=== PATIENT | female | born 1985 | race Caucasian/White ===

== ENCOUNTER 2025-01-20 23:09 | Emergency (ER) | payer OTHER, SELFPAY ==
[2025-01-20 23:10] VITALS: BP 140/93; PULSE 80; RESP 16; TEMP 36.8; O2SAT 99; BMI 20.5
--- NOTE | 2025-01-20 23:30 | RAD_ITS ---
PROCEDURE: RIGHT WRIST MIN 3 VIEWS 01/20/2025 REASON FOR EXAM: PAIN TECHNIQUE: RIGHT WRIST MIN 3 VIEWS COMPARISON: None. FINDINGS: No acute fracture or dislocation. Alignment is anatomic. Preserved joint spaces. No aggressive osseous lesion. No appreciable soft tissue swelling or radiopaque foreign body. RAD/Wrist min 3 Views IMPRESSION: No acute fracture or dislocation. Reading Location: [id number]
--- NOTE | 2025-01-21 00:14 | EDS_ITS ---
HPI History of Present Illness Chief Complaint: Upper Extremity Injury Informant: patient and spouse/S.O. Narrative Narrative: Patient is a 39-year-old female with no reported significant past medical history. She states just 1 to 2 hours ago she tripped and fell catching herself on outstretched right arm/hand. She states her hand was bent backwards when she fell. She denies striking her head or any loss of consciousness. She states after the fall she noticed swelling and pain to the right wrist region. She states that she is concerned potential fracture based on the injury and therefore comes in for evaluation. PFSH PFSH Medical History no medical history no medical history Allergy/AdvReac Type Severity Reaction Status Date / Time No Known Allergies Allergy Verified 01/20/25 23:12 Family History no significant family his Surgical History no surgical history Social History Smoking Status: Never smoker ROS ROS ED Constitutional Constitutional ED: Denies chills or fever(s) Eyes Eyes: Denies change in vision ENT ENT ED: Denies sore throat Cardiovascular Cardiovascular: Reports other Details: Negative syncope ; Denies chest pain, palpitations or racing heartbeat Respiratory/Chest Respiratory/Chest: Denies cough or dyspnea Gastrointestinal Gastrointestinal: Denies abdominal pain, diarrhea, nausea or vomiting Musculoskeletal Musculoskeletal: Reports other Details: Positive right wrist pain/swelling ; Denies back pain or neck pain Integumentary Denies Abrasions or rash Neurologic Neurologic: Denies headache(s) Hematologic/Lymphatic Hematologic/Lymphatic: Denies easy bleeding or easy bruising EXAM Physical Exam Const Vital Signs: 01/20/25 23:10 Temperature 98.3 F Temperature Source Oral Pulse Rate 80 Respiratory Rate 16 Blood Pressure 140/93 H Blood Pressure Mean 108 Pulse Ox 99 Oxygen Delivery Method Room Air Positive well nourished and well developed General Appearance ED: well developed HEENT HEENT Narrative: Normocephalic atraumatic Eyes PERRL and EOMs intact bilaterally Neck full ROM and supple Resp normal respiratory effort and clear to auscultation bilaterally Cardio regular rate and regular rhythm Extremity Extremity Narrative: Right upper extremity is neurovascularly intact; AIN/PIN are intact and normal. Active range of motion is decreased secondary to pain. There is diffuse swelling across the dorsal aspect of the right wrist. There is pain with palpation over top of the metacarpal bones as well as the anatomical snuffbox. However there is no obvious bony deformity or joint effusion. No ligamentous or tendon laxity noted. No obvious deformity or decreased range of motion or pain with palpation of the elbow or shoulder Remainder of the exam is normal Neuro oriented x3 and CN's II-XII intact bilaterally Sensorium / Orientation: alert Psych mental status grossly normal Skin no rashes or lesions noted Skin Narrative: Soft tissue swelling to the dorsal aspect of the right wrist as documented above MDM MDM MDM Narrative Medical decision making narrative: Patient arrived to the ER mildly hypertensive but otherwise with stable vitals. She reported a mechanical fall and therefore there is no need for cardiac or syncope workup. She did not strike her head or have loss of consciousness and therefore concern for a subarachnoid or subdural hemorrhage is low and there is no need for head CT. With pain and swelling to the right wrist with reported fall on outstretched hand there is concern for potential fracture. Therefore an x-ray was obtained. X-ray showed no acute fracture or dislocation. As she does have pain in the snuffbox to be placed in a thumb spica splint. However as there is no signs of ligamentous or tendon damage or compartment syndrome or fracture there is no need for further intervention and she is otherwise safe for discharge. History & Record Review Discussion w/independent historian: Patient and Significant other Radiography Diagnostic Testing: Clinical Impression(s) from Imaging Studies Wrist X-Ray 01/20/25 23:30 IMPRESSION: No acute fracture or dislocation. Reading Location: [facility] X-ray of the right wrist as interpreted by the emergency medicine physician reveals no acute fracture or dislocation Discharge Plan Triage Chief Complaint: Upper Extremity Injury ED Provider: Toño Grider Dx/Rx/DC Orders Clinical Impression: Right wrist sprain, Accidental fall Instructions: ED Wrist Sprain Primary Care Provider: STEPHANIE HENDERSON Referrals: STEPHANIE HENDERSON [Other] Activity Restrictions/Additional Instructions: Please wear your brace for stabilization to help reduce pain and speed healing. If there is no improvement in your symptoms after 1 week you may need repeat x- rays to make sure there was no missed fracture. Please continue to ice the area as well to help reduce pain and speed healing Print Language: Turkish Disposition Disposition: Home, Self Care Discharge Date/Time: 01/21/25 00:26
[2025-01-21 00:24] VITALS: BP 122/73; PULSE 65; RESP 16; TEMP 36.6; O2SAT 99
== END 2025-01-21 00:26 | disposition home or self-care (01) ==
PROVIDERS: Emergency Provider Emergency Medicine; Visit Provider Emergency Medicine
DX: S63.91XA Sprain of unspecified part of right wrist and hand, initial encounter (principal); W01.0XXA Fall on same level from slipping, tripping and stumbling without subsequent striking against object, initial encounter
CPT/HCPCS: 73110; 99283